=== PATIENT | male | born 1975 | race African-American/Black ===

== ENCOUNTER 2019-01-08 08:17 | Emergency (ER) | payer BC ==
[~2019-01-08] VITALS: Ht 180.3 cm; Wt 73.0 kg
[2019-01-08 11:49] VITALS: BP 128/79
== END 2019-01-08 11:49 | disposition home or self-care (01) ==
LOC: ER 08:17
DX: M79.604 Pain in right leg (principal); M25.551 Pain in right hip; M25.512 Pain in left shoulder; F17.200 Nicotine dependence, unspecified, uncomplicated; F12.10 Cannabis abuse, uncomplicated; D64.9 Anemia, unspecified
CPT/HCPCS: 73030; 73502; 93971; 99284

== ENCOUNTER 2019-04-18 08:46 | Emergency (ER) | payer BC ==
[~2019-04-18] VITALS: Ht 175.3 cm; Wt 73.0 kg
[2019-04-18 09:04] VITALS: BP 129/63
[2019-04-18] MEDS ORDERED: KETOROLAC 30MG/ML VIAL IM ONE (10:00)
== END 2019-04-18 10:28 | disposition home or self-care (01) ==
LOC: ER 08:46
DX: M54.41 Lumbago with sciatica, right side (principal)
CPT/HCPCS: 96372; 99283; J1885